=== PATIENT | female | born 1980 | race African-American/Black ===

== ENCOUNTER 2018-03-20 18:18 | Emergency (ER) | payer OTHER, MEDICAID ==
[2018-03-20] MEDS: NEOMY/BACITR/POLYMYXIN OINT PACKET. TP (19:04)
[2018-03-20] MEDS: DIPHTH,PERTUSS(ACELL),TET TOX 0.5 ML DISP.SYRIN. VAX IM (19:19)
[2018-03-20] MEDS: LIDOCAINE 2%/EPI 1:100,000 20 ML VIAL. IJ (20:00)
== END 2018-03-20 21:07 | disposition home or self-care (01) ==
LOC: ER 18:18
DX: S01.81XA Laceration without foreign body of other part of head, initial encounter (principal); W22.8XXA Striking against or struck by other objects, initial encounter; Y93.89 Activity, other specified; Y99.8 Other external cause status; Y92.89 Other specified places as the place of occurrence of the external cause
CPT/HCPCS: 12004; 70450; 72125; 90471; 90715; 99284-25; J3490